=== PATIENT | female | born 1960 | race Caucasian/White ===

== ENCOUNTER 2018-05-14 13:44 | Observation (INO) | payer SELFPAY ==
[2018-05-14 14:56] LABS: Bilirubin Negative (Negative); Blood, Urine Negative (Negative); Clarity CLEAR (Clear); Glucose, Urine (Dipstick) Negative (Negative); Leukocyte Negative (Negative); Nitrite Negative (Negative); Protein, Urine (Dipstick) Negative (Neg-Trace); Specific Gravity, Urine 1.004 (1.002-1.036); Urobilinogen 0.2 mg/dL (0.2-1.0); pH, Urine 7.5 (5.0-9.0)
--- NOTE | 2018-05-14 15:32 | PDOC.FPRHP ---
- History of Present Illness Chief Complaint: chest pain/dizziness History of Present Illness: This is a 57 yo F who is a transfer from [facility] presenting w/ chest pain. Patient states the chest pain started this morning. She felt dizzy before the episode which was exacerbated by standing up and moving. Patient states the chest pain was sharp, radiated to her back by her right shoulder but lasted less than 5 min. Endorses dry heaving during this time but no nausea or vomiting. Patient also endorsed abdominal pain that was crampy and resolved after she had a BM. Patient states that she has never had a chest pain like that and has no cardiac history. On exam in the ER, the patient states that her chest pain and dizziness has resolved. She admits to not drinking much water and typically only drinks Dr. Pepper. Denies fever/chills, NVD, SOB, diaphoresis, LE swelling. ED Course: given 2L IVF, ASA - Allergies/Adverse Reactions Allergies Allergy/AdvReac Type Severity Reaction Status Date / Time No Known Allergies Allergy Verified 05/14/18 18:07 - Home Medications Medication Instructions Recorded Confirmed Type Famotidine [Pepcid] 20 mg PO DAILY 05/14/18 05/14/18 History - History PMHx: GERD PSHx: appendectomy FHx: no cardiac hx Social: quit smoking > 15years ago, denies alcohol use, endorses use of marijuana daily - Review of Systems General: denies: fever/chills, weight/appetite/sleep changes, night sweats, fatigue ENT: denies: nasal congestion, rhinorrhea Respiratory: denies: cough, congestion, shortness of breath, exercise intolerance Cardiovascular: reports: chest pain. denies: palpitation, edema, paroxysmal nocturnal dyspnea, orthopnea Gastrointestinal: reports: abdominal pain. denies: nausea, vomiting, diarrhea, constipation Genitourinary: denies: dysuria Musculoskeletal: denies: pain, tenderness, stiffness Neurological: reports: other (dizziness). denies: syncope - Vital signs BP: 131/68 HR: 77 RR: 20 Tmax: 98.3 Pox: 99% on RA Wt: 47.17kg - Physical Exam Constitutional: NAD, awake, alert and oriented -Constitutional: malnourished appearing female HEENT: normocephalic and atraumatic, PERRLA, EOMI, grossly normal vision, grossly normal hearing -HEENT: dry MM, poor dentition Neck: supple, FROM, trachea midline, no JVD Chest: no-tender to palpation, no lesions Heart: RRR, normal S1/S2 -Heart: distant heart sounds Lungs: CTAB, good air movement, no wheezing Abdomen: soft, non-tender, bowel sounds present, no masses/distention Musculoskeletal: normal structure, normal tone, ROM grossly normal Neurological: no focal deficit Skin: no rash/lesions, capillary refill <2 seconds Psychiatric: normal mood and affect, good judgment and insight FMR H&P: Results - Labs Result Diagrams: 05/15/18 05:34 05/15/18 05:34 Lab results: Urine Ketones Negative mg/dL (Negative) 05/14/18 13:57 Urine Blood Negative (Negative) 05/14/18 13:57 Urine Nitrite Negative (Negative) 05/14/18 13:57 Ur Leukocyte Esterase Negative (Negative) 05/14/18 13:57 - Radiology Interpretation Chest x-ray Status: report reviewed by me (no acute process) FMR H&P: A/P - Problem List (1) Atypical chest pain Status: Acute Code(s): R07.89 - OTHER CHEST PAIN (2) Lactic acidosis Status: Acute Code(s): E87.2 - ACIDOSIS (3) Leukocytosis Status: Acute Code(s): D72.829 - ELEVATED WHITE BLOOD CELL COUNT, UNSPECIFIED (4) Mild dehydration Status: Acute Code(s): E86.0 - DEHYDRATION (5) Marijuana abuse Status: Acute Code(s): F12.10 - CANNABIS ABUSE, UNCOMPLICATED (6) Pre-syncope Status: Acute - Plan Atypical Chest pain, ACS r/o - Echo pending - Stress test in AM - lipid panel pending Pre-Syncope - likely 2/2 to volume depletion - Will obtain orthostatic VS - mIVF - cardiac work up as above Leukocytosis - WBC 11 - Likely due to dehydration Mild Dehydration - likely cause of elevated lactate and WBC - Patient given 2L IVF in ED - Will continue to monitor Lactic Acidosis - LA 4.6 - Will trend - likely due to pt being volume down Hx of Marijuana Use - endorses daily use of marijuana, denies other illicit drugs - Will obtain UDS DISPO: admit to tele obs for cardiac work up CODE: chem only vte ppx: SCDs Case discussed with Dr. Robertson Disposition/LOS: stable, </= 2 days FMR H&P: Upper Level - Pertinent history 57 yo F w/ no known PMH and prior tobacco use presents for evaluation of left sided sharp chest pain with associated dizziness. Pt reports acute onset of pain this am and short duration lasting only 5 minutes. Denied exacerbating and remitting factors. Additionally, pt reportsed some epigastric pain described as cramping and relieved with BM. Upon evaluation in ER pt denies CP, sob. - Pertinent findings ROS: Negative except for those listed previously including cp, abd pain and dizziness. PE: Gen- NAD resting comfortably in bed Head: NCAT CV/Chest: RRR no MRG, distant heart sounds. Chest NT to palpation Respiratory: CTA-Bl, no rales rhonchi or wheezes Abd: Normoactive BS X4, no rebound guarding or tenderness, no epigastric tenderness Ext: No edema, moving all equally Neuo: No focal Deficit a/p 1) Atypical chest pain: troponins negative X2 and curreently chest pain free. EKG showed NSR w/o t wave changes and normal rate. CXR NAD - am stress and echo, NPO @ midnight - am FLP 2) Leukocytosis: - mild, likely related to hemoconcentration, IVF and trend in am. CXR negative and UA negative. No evidence of infection elsewhere. 3) Lactic acidosis: - unknown etiology - given pt symptoms suspect volume depletion (pt reports no water intake); however, no ketonuria and normal CK - will give IVF and trend. - consider advanced studies if no resolution with adequate hydration 4) Pre-syncope - suspect volume depletion - check orthostatics and cont IVF resuscitation - cardiac workup pending, all labs normal to this point and EKG normal 5) Mild dehydration: - IVF, see #3 6) Marijuana use - UDS pending - Plan Date/Time: 05/14/18 1530 I, [], have evaluated this patient and agree with findings/plan as outlined by risk intern resident. Pertinent changes/additions are listed here. Attending Addendum - Attending Addendum Date/Time: 05/14/181812 I personally evaluated the patient and discussed the management with Dr. Baeza I agree with the History, Examination, Assessment and Plan documented above with any addition or exceptions noted below. 57 yo female admitted for ACS rule out complaining of atypical chest pain. Upon evaluation patient reported resolution of symptoms. Currently comfortable. Will continue to trend labs. EKG unimpressive. Consider stress in AM as indicated by risk score. Unsure cause of lactic acidosis other than dehydration and substance use. No s/ sx of infection or other metabolic concerns. Continue to trend. ABrayMD
[2018-05-14] MEDS ORDERED: Acetaminophen 325 MG TAB PO PRN (17:52)
[2018-05-14] MEDS ORDERED: Ondansetron PF 4 MG/2 ML Vial IVP PRN (17:52)
[2018-05-14] MEDS ORDERED: Ondansetron ODT 4 MG TAB PO PRN (17:52)
[2018-05-14 17:54] VITALS: BMI 19.5
[2018-05-14 18:23] LABS: Lactic Acid 1.2 mmol/L (0.5-2.2)
[2018-05-14 18:27] LABS: Amphetamine Not Detected (NotDetected); Barbiturates Screen Not Detected (NotDetected); Benzodiazepine Screen Not Detected (NotDetected); Cocaine Metabolite Screen Not Detected (NotDetected); Medtox Control Line Valid? VALID (VALID); Medtox Reader # READER 1; Methadone Not Detected (NotDetected); Methamphetamine Not Detected (NotDetected); Opiate Screen Not Detected (NotDetected); Oxycodone Screen Not Detected (NotDetected); Phencyclidine (PCP) Not Detected (NotDetected); THC/Cannabinoid Screen Detected (NotDetected); Tricyclic Screen Not Detected (NotDetected)
[2018-05-14] MEDS: Lactated Ringer's 1,000 ML IV SCH (18:29)
[2018-05-14 21:04] LABS: Troponin I Less than 0.010 ng/mL (< 0.028)
[2018-05-15] MEDS: Lactated Ringer's 1,000 ML IV SCH ×2 (02:41→12:04)
[2018-05-15 06:07] LABS: #Basophils 0.1 thou/uL (0.0-0.2); #Eosinphils 0.1 thou/uL (0.0-0.7); #Lymphocytes 2.1 thou/uL (1.20-3.40); #Monocytes 0.4 thou/uL (0.11-0.59); #Neutrophils 4.1 thou/uL (1.40-6.50); %Basophils 0.9 % (0.0-1.0); %Eosinophils 1.5 % (0.0-10.0); %Lymphocytes 30.3 % (21.0-51.0); %Monocytes 6.5 % (0.0-10.0); %Neutrophils 60.8 % (42.0-75.0); Hemoglobin 12.9 g/dL (12.0-16.0); Mean Corpuscular HGB CONC 33.4 g/dL (32.0-36.0); Mean Corpuscular Hemoglobin 33.1 pg (27.0-31.0); Mean Platelet Volume 7.2 fL (7.4-10.4); Platelet Count 283 thou/uL (130-400); Red Blood Cell (RBC) Count 3.89 mill/uL (4.20-5.40); White Blood Cell (WBC) Count 6.8 thou/uL (4.8-10.8)
[2018-05-15 06:20] LABS: Anion Gap 12 mmol/L (10-20); BUN (Urea Nitrogen) 7 mg/dL (9.8-20.1); Calc. Creatinine Clearance 72 mL/min (70-130); Calcium 9.5 mg/dL (7.8-10.44); Carbon Dioxide 23 mmol/L (22-29); Cardiac Risk 5.4 (Less than 4.5); Chloride 111 mmol/L (98-107); Cholesterol 232 mg/dl (< 200 Desired); Estimated GFR-MDRD Greater than 90; Glucose 97 mg/dL (70-105); HDL Cholesterol 43 mg/dL (>60 Neg Risk); LDL Cholesterol, Calculated 158 mg/dL; Potassium 4.5 mmol/L (3.5-5.1); Sodium 141 mmol/L (136-145); Triglycerides 155 mg/dL (Less than 150)
--- NOTE | 2018-05-15 06:35 | PDOC.FM ---
- Subjective Subjective: Patient resting comfortably in bed. No overnight events. Patient has not had pain since yesterday. No complaints or concerns. - Objective Vital Signs & Weight: Vital Signs (12 hours) Temp Pulse Resp BP BP BP Pulse Ox 05/15/18 04:48 97.9 F 82 14 139/65 99 05/14/18 18:52 98.3 F 80 18 119/68 129/82 155/95 H 98 Weight Weight 48.398 kg I&O: 05/13/18 05/14/18 05/15/18 06:59 06:59 06:59 Output Total 150 Balance -150 Result Diagrams: 05/15/18 05:34 05/15/18 05:34 Phys Exam - Physical Examination Constitutional: NAD HEENT: PERRLA, moist MMs, sclera anicteric Neck: no JVD, supple, full ROM Respiratory: clear to auscultation bilateral Cardiovascular: RRR, no significant murmur, no rub Gastrointestinal: soft, non-tender, no distention, positive bowel sounds Musculoskeletal: no edema, pulses present Neurological: non-focal Psychiatric: normal affect, A&O x 3 Skin: no rash Dx/Plan (1) Atypical chest pain Code(s): R07.89 - OTHER CHEST PAIN Status: Acute (2) Lactic acidosis Code(s): E87.2 - ACIDOSIS Status: Acute (3) Leukocytosis Code(s): D72.829 - ELEVATED WHITE BLOOD CELL COUNT, UNSPECIFIED Status: Acute (4) Mild dehydration Code(s): E86.0 - DEHYDRATION Status: Acute (5) Marijuana abuse Code(s): F12.10 - CANNABIS ABUSE, UNCOMPLICATED Status: Acute (6) Pre-syncope Status: Acute - Plan Plan: Atypical Chest pain, ACS r/o - Heart score 2 - Stress test this AM; no need for echo as no signs of HF present - T, Total cholesterol 232, LDL 158, HDL 43 -> ASCVD risk 4.3%, no need for statin therapy Pre-Syncope - likely 2/2 to volume depletion - Orthostatics positive: sitting 120/82; standing 155/95 - will encourage oral hydration - cardiac work up as above Mild Triglyceridemia - T - Will drug and alcohol counsellor for lifestyle modifications Leukocytosis - WBC 11 - Likely due to dehydration Mild Dehydration - likely cause of elevated lactate and WBC - Patient given 2L IVF in ED - Will continue to monitor Lactic Acidosis, resolved - LA 4.6 -> 1.2 - likely due to pt being volume down Hx of Marijuana Use - endorses daily use of marijuana, denies other illicit drugs - UDS: pos for cannibinoids DISPO: can d/c if stress neg CODE: chem only vte ppx: SCDs
[2018-05-15 11:54] VITALS: BP 115/74; TEMP 98.1
--- NOTE | 2018-05-15 11:58 | NM ---
THERESAONUCLIDE STRESS REST MYOCARDIAL PERFUSION SCAN WITH CT ATTENUATION CORRECTION AND SPECT IMAGING LEFT VENTRICULAR WALL MOTION EVALUATION AND EJECTION FRACTION: History: Chest pain. FINDINGS: Pal protocol total test time 4:16. Homogeneous uptake of radiotracer throughout the left ventricular myocardium. No focal perfusion defe ct or reversibility. QGS analysis of gated SPECT images shows no focal wall motion abnormalities. TID: 0.9 LHR: 33% LEFT VENTRICULAR EJECTION FRACTION: Calculated at greater than 80%. IMPRESSION: Normal myocardial perfusion scan. Normal LVEF. POS: YAHAIRA
--- NOTE | 2018-05-15 13:39 | PRG ---
DATE OF SERVICE: 05/15/2018 ADDENDUM: This is an addendum to the note of Dr. Alba Baeza. Ms. Siu was admitted with some chest pain. She has just returned from her stress Myoview and we are awaiting the results. She has been chest pain-free since admission. Of note, her cholesterol was 232, her LDL was 158 with an HDL of 43. Otherwise, her BMP is normal and renal function is normal with a GFR of greater than 90. She does not smoke. Further treatment will depend on course on the results of the stress Myoview with cardiac catheterization to follow if it is abnormal, discharge home if it is normal. Job ID: [id number]
--- NOTE | 2018-05-15 15:39 | EKG ---
Test Reason : Blood Pressure : / mmHG Vent. Rate : 068 BPM Atrial Rate : 068 BPM P-R Int : 172 ms QRS Dur : 072 ms QT Int : 400 ms P-R-T Axes : 078 060 072 degrees QTc Int : 425 ms Normal sinus rhythm Normal ECG Confirmed by GIA DODD ([id number]), scientific publications editor ANDRES DEL ANGEL ([id number]) on 05/15/2018 3:39:00 PM Referred By: Confirmed By:GIA DODD
--- NOTE | 2018-05-16 14:35 | DIS ---
DATE OF ADMISSION: 05/14/2018 DATE OF DISCHARGE: 05/15/2018 RESIDENT: Alba Baeza MD. ADMITTING ATTENDING: Katarzyna Fernandez M.D. DISCHARGE ATTENDING: Lavelle Almazan M.D. CONSULTS: None. PROCEDURE PERFORMED: None. DISCHARGE MEDICATIONS: Pepcid 20 mg oral daily. DISCONTINUED MEDICATIONS: None. HISTORY OF PRESENT ILLNESS/HOSPITAL COURSE: This is a 57-year-old female who transferred from [facility] presenting with chest pain. The patient states that her chest pain started earlier that morning. She felt dizzy before the episode, which was exacerbated by standing up and moving. The patient states the chest pain was sharp, radiated to her back by the right shoulder and lasted less than 5 minutes. The patient endorses dry, heating during this time, but no nausea or vomiting. The patient also endorsed an abdominal pain that was crampy and resolved after a bowel movement. The patient states she has never had a chest pain like this and has no cardiac history. In the ER, the patient was given 2 liters of fluids and aspirin. The patient had negative troponin x3. EKG was normal. Vital signs remained stable. The patient had an elevated lactic acid of 4.6, which trended down the next day after fluids. The patient has a history of marijuana use and a UDS was obtained that was negative besides cannabinoids. The patient had a stress test that showed an ejection fraction of greater than 80%. It was a normal myocardial perfusion scan. The patient remained stable throughout her stay with no recurrence of chest pain. Chest pain was likely due to dyspepsia or MSK in origin. DISPOSITION: Stable. DISCHARGE INSTRUCTIONS: 1. Location: Home. 2. Activity: Ad dre. 3. Diet: Regular. 4. Followup: Follow up with PCP within 7 days. Job ID: [id number]
== END 2018-05-15 12:37 | disposition home or self-care (01) ==
LOC: ERS 13:44 → 2SW 16:00
PROVIDERS: ADMIT Family Medicine; ATTEND Family Medicine
DX: R07.89 Other chest pain (principal); R55 Syncope and collapse; E87.2 Acidosis; D72.829 Elevated white blood cell count, unspecified; K21.9 Gastro-esophageal reflux disease without esophagitis; E86.0 Dehydration; F12.10 Cannabis abuse, uncomplicated; Z90.49 Acquired absence of other specified parts of digestive tract; Z87.891 Personal history of nicotine dependence; Z79.899 Other long term (current) drug therapy
CPT/HCPCS: 36415; 78452; 80048; 80061; 80306; 82550; 83605; 85025; 87086; 93005; 93017; 96360; 96361; A9500; G0378